=== PATIENT | female | born 1995 | race Two or more races ===

== ENCOUNTER 2022-11-04 19:12 | Emergency (ER) | payer OTHER ==
[~2022-11-04] VITALS: Ht 165.1 cm; Wt 62.6 kg
[2022-11-04] MEDS ORDERED: ACETAMINOPHEN 325 MG TABLET PO ONE (19:30)
[2022-11-04] MEDS ORDERED: ACETAMINOPHEN 325 MG TABLET ONE (19:38)
[2022-11-04] MEDS ORDERED: IBUP-1955 PO (20:02)
--- NOTE | 2022-11-04 20:05 | NUR ---
ASSUMED CARE OF PT. PT C/O LEFT ANKLE PAIN AND BILATERAL KNEE PAIN S/P TRIP AND FALL IN [employer]. PT DENIES KO OR HEAD TRAUMA. PT AAOX4 BREATHING EVENLY AND UNLABORED. PT ATTACHED TO MONITOR AND POX. WILL CONTINUE TO MONITOR.
--- NOTE | 2022-11-04 21:31 | NUR ---
FF XRAY RESULT WITH FOCUS DIAGNOSTIC
--- NOTE | 2022-11-04 21:55 | NUR ---
Patient discharged to home in stable condition. Written and verbal after care instructions given. Patient verbalizes understanding of instruction. PT LEFT ANKLE KAMALJIT WRAPPED AND CRUTCH GAIT TRAINING DONE. PT VERBALIZED AND DEMONSTRATED UNDERSTANDING. PT AWAITING RIDE
[2022-11-04 22:11] VITALS: BP 116/79
== END 2022-11-04 21:55 | disposition home or self-care (01) ==
LOC: ER 19:14
DX: M25.561 Pain in right knee (principal); M25.562 Pain in left knee; M25.572 Pain in left ankle and joints of left foot; M79.632 Pain in left forearm; W01.0XXA Fall on same level from slipping, tripping and stumbling without subsequent striking against object, initial encounter; Y93.89 Activity, other specified; Y92.512 Supermarket, store or market as the place of occurrence of the external cause; Y99.8 Other external cause status
CPT/HCPCS: 73090-TC; 73564-TC; 73610-TC

== ENCOUNTER 2023-01-13 16:02 | Emergency (ER) | payer OTHER ==
[~2023-01-13] VITALS: Ht 154.9 cm; Wt 68.0 kg
[~2023-01-13 16:02] MED LIST: IBUP-1955 PO
--- NOTE | 2023-01-13 16:37 | NUR ---
urine sample obtained
--- NOTE | 2023-01-13 16:55 | NUR ---
BLOOD SAMPLE OBTAINED
[2023-01-13 16:59] LABS: BILIRUBIN,URINE NEGATIVE (NEGATIVE); COLOR,URINE RED (YELLOW); LEUKOCYTE ESTERASE ,URINE 1+ (NEGATIVE); NITRITE, URINE POSITIVE (NEGATIVE); PROTEIN,URINE 2+ mg/dl (NEGATIVE); UGLUCOSE TRACE mg/dL (NEGATIVE)
[2023-01-13] MEDS ORDERED: ACETAMINOPHEN ES 500 MG TABLET PO ONE (17:00)
[2023-01-13] MEDS ORDERED: ACETAMINOPHEN ES 500 MG TABLET ONE (17:10)
[2023-01-13 17:16] LABS: BASOPHILS % (AUTO) 0.4 % (0.0-2.0); EOSINOPHILS % (AUTO) 0.8 % (0.0-6.0); HEMATOCRIT 48 % (33-45); HEMOGLOBIN 15.5 g/dL (11.5-14.8); LYMPHOCYTES # (AUTO) 2.1 K/uL (0.8-4.8); LYMPHOCYTES % (AUTO) 20.9 % (20.0-44.0); MEAN CORPUSCULAR HGB CONC 33 g/dl (31.0-36.0); MEAN CORPUSCULAR VOLUME 91 fL (82-100); MONOCYTES # (AUTO) 0.7 K/uL (0.1-1.30); MONOCYTES % (AUTO) 7.1 % (2.0-12.0); NEUTROPHILS % (AUTO) 70.8 % (43.0-81.0); PLATELET COUNT (AUTO) 413 K/uL (150-450); RED BLOOD CELL COUNT(AUTO) 5.23 MIL/uL (4.0-5.2); WHITE BLOOD COUNT (AUTO) 9.9 K/uL (4.3-11.0)
[2023-01-13 17:23] LABS: CALCIUM, SERUM 9.4 mg/dL (8.5-10.1); CREATININE 0.7 mg/dL (0.6-1.3); POTASSIUM 3.7 mmol/L (3.5-5.1)
[2023-01-13 17:29] LABS: ALBUMIN 4.3 g/dL (3.4-5.0); BILIRUBIN,DIRECT 0.1 mg/dL (0.0-0.2); BILIRUBIN,TOTAL 0.4 mg/dL (0.2-1.0); TOTAL PROTEIN, SERUM 8.4 g/dL (6.4-8.2)
[2023-01-13 17:30] LABS: BACTERIA,URINE Few /HPF (None Seen); RBC,URINE 51-80 /HPF (0-2); SQUAMOUS EPITHELIAL CELL,UR Few /HPF (None Seen)
[2023-01-13 19:07] VITALS: BP 132/85
--- NOTE | 2023-01-13 19:07 | NUR ---
Patient discharged to home in stable condition. Written and verbal after care instructions given. Patient verbalizes understanding of instruction.IV removed. Catheter intact and site benign. Pressure and 4x4 applied to site. No bleeding noted.
== END 2023-01-13 19:08 | disposition home or self-care (01) ==
LOC: ER 16:03
DX: O20.0 Threatened abortion (principal); Z60.2 Problems related to living alone; Z79.899 Other long term (current) drug therapy
CPT/HCPCS: 36415; 76856-TC; 80048-TC; 80076-TC; 81001; 84702-TC; 84703-TC; 85025-TC; 86850-TC; 87086-TC